=== PATIENT | female | born 1980 | race Caucasian/White ===

== ENCOUNTER 2016-11-27 11:36 | Day surgery (SDC) | payer MEDICAID ==
[~2016-11-27 11:36] MED LIST: Lactated Ringers 1,000 ML IV SCH; Sodium Chloride 0.9% 10 ML Syringe FLUSH PRN; Sodium Chloride 0.9% 2.5 ML Syringe FLUSH PRN; fentaNYL 100 MCG/2 ML SDV IVPUSH PRN
--- NOTE | 2016-11-27 12:15 | PCM.PREANE ---
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: Psychiatric History: Reports: Anxiety, Depression Endocrine/Metabolic History: Reports: Hypothyroidism - Past Surgical History Head Surgeries/Procedures: Reports: None HEENT Surgical History: Reports: Tonsillectomy Female Surgical History: Reports: Tubal ligation Musculoskeletal Surgical History: Reports: Other (see below) Other Musculoskeletal Surgeries/Procedures:: scar tissue removed from rt arm due to previous dog bite - SUBSTANCE USE Smoking Status *Q: Current Every Day Smoker (1/2 ppd) Tobacco Use Within Last Twelve Months: Cigarettes Recreational Drug Use History: No - HOME MEDS Home Medications: Home Meds Ibuprofen 1 tab PO ASDIRECTED PRN 11/02/16 [History] Levothyroxine Sodium [Synthroid] 137 mcg PO DAILY 11/02/16 [History] - CURRENT (IN HOUSE) MEDS Current Meds: Current Medications Fentanyl (Sublimaze) 50 mcg IVPUSH Q5M PRN PRN Reason: Pain (severe 7-10) Stop: 11/28/16 10:12 Lactated Ringer's (Ringers, Lactated) 1,000 mls @ 100 mls/hr IV ASDIRECTED LON Last Admin: 11/27/16 12:09 Dose: 100 mls/hr Sodium Chloride (Saline Flush) 10 ml FLUSH ASDIRECTED PRN PRN Reason: Keep Vein Open Sodium Chloride (Saline Flush) 2.5 ml FLUSH ASDIRECTED PRN PRN Reason: Keep Vein Open Discontinued Medications Lactated Ringer's (Ringers, Lactated) 1,000 mls @ 100 mls/hr IV ASDIRECTED LON Sodium Chloride (Saline Flush) 10 ml FLUSH ASDIRECTED PRN PRN Reason: Keep Vein Open Sodium Chloride (Saline Flush) 2.5 ml FLUSH ASDIRECTED PRN PRN Reason: Keep Vein Open Preanesthetic Assessment - ANESTHESIA/TRANSFUSION/FAMILY HX Anesthesia/Transfusion History: Prior Anesthesia Type of Anesthesia Reaction: Denies: Allergy, Anesthesia Awareness, Excessive Somnolence, Excessive Nausea/Vomiting, Excessive Itching, Excessive Shivering, Malignant Hyperthermia, Malignant Hyperthermia, Family History, Pseudocholinesterase Deficiency, Pseudocholinesterase Deficiency, Family History of, Urinary Retention, Unknown, Other (see below) Family History of Anesthesia Reaction: No Other Intubation History Comment: no known problems - REVIEW OF SYSTEMS Constitutional: Reports: no symptoms 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 Respiratory: Reports: no symptoms Cardiovascular: Reports: no symptoms GI: Reports: no symptoms Other: Reports: None - PHYSICAL ASSESSMENT Height: 1.68 m Weight: 83.461 kg ASA Class: 2 Mental Status: Alert & Oriented x3 Airway Class: Mallampati = 2 Dentition: Reports: Normal Dentition Thyro-Mental Finger Breadths: 3 Mouth Opening Finger Breadths: 3 ROM/Head Extension: Full Respiratory Status: lungs clear to auscultation bilaterally Cardiovascular Status: regular rate & rhythm, normal S1, S2, no murmur, blood pressure WNL - ALLERGIES Allergies/Adverse Reactions: Allergies Allergy/AdvReac Type Severity Reaction Status Date / Time Penicillins Allergy Rash Verified 11/02/16 13:08 - BLOOD Blood Available: No - ANESTHESIA PLAN Preop Beta [place]: No Anesthesia Type Planned: General Anesthesia - ACKNOWLEDGEMENTS Pt an Appropriate Candidate for the Planned Anesthesia: Yes Alternatives and Risks of Anesthesia Discussed w Pt/Guardian: Yes Pt/Guardian Understands and Agrees with Anesthesia Plan: Yes
[2016-11-27] MEDS ORDERED: fentaNYL 250 MCG/5 ML SDV ONE (12:22)
[2016-11-27] MEDS ORDERED: Lidocaine 2% 5 ML SDV ONE ×2 (12:22→12:45)
[2016-11-27] MEDS ORDERED: Propofol 200 MG/20 ML SDV ONE ×2 (12:22→12:45)
[2016-11-27] MEDS ORDERED: Midazolam 1 MG/ML 2 ML SDV ONE (12:22)
[2016-11-27] MEDS ORDERED: Ondansetron 4 MG/2 ML SDV ONE (12:22)
[2016-11-27] MEDS ORDERED: fentaNYL 100 MCG/2 ML SDV IVPUSH PRN (13:28)
[2016-11-27] MEDS ORDERED: HYDROmorphone 2 MG/ML Syringe IVPUSH ONE (13:28)
[2016-11-27] MEDS ORDERED: ePHEDrine 50 MG/ML SDV ONE (13:37)
[2016-11-27] MEDS ORDERED: Ketorolac 30 MG/ML SDV ONE (13:40)
--- NOTE | 2016-11-27 14:05 | PCM.OPNOTE ---
- General Post-Op/Procedure Note Date of Surgery/Procedure: 11/27/16 Operative Procedure(s): Operative hysteroscopy with polypectomy. Thermal endometrial ablation (peggy) Pre Op Diagnosis: Menometrorrhagia Post-Op Diagnosis: Same Anesthesia Technique: General LMA Primary Surgeon: Cyndy Frey Pathology: Endometrial polyp, curretings of endometrium Fluid Replacement, Intraop: 500 EBL in mLs: 10 Complications: None known Condition: Good Free Text/Narrative:: Dictation [id number]
[2016-11-27 15:59] VITALS: BP 102/57
[2016-11-27] MEDS ORDERED: Acetaminophen 325 MG Tab PO ONE (16:07)
--- NOTE | 2016-11-27 16:40 | OR ---
SURGEON: Cyndy Frey M.D. DATE OF PROCEDURE: 11/27/2016 PREOPERATIVE DIAGNOSIS: Menometrorrhagia. POSTOP DIAGNOSIS: Menometrorrhagia. PROCEDURE: 1. Operative hysteroscopy and polypectomy. 2. Thermal endometrial ablation with Ashley. ESTIMATED BLOOD LOSS: 10 mL. ANESTHESIA: General LMA. FLUIDS: 500 mL crystalloid, fluid deficit 150 mL normal saline. COMPLICATION: None known. FINDINGS: Approximately 10 cm uterine cavity. There is an anterior mid low uterine polyp noted, otherwise normal-appearing endometrial cavity. DISPOSITION: The patient to PACU, stable. INDICATIONS: Arlette is a 36-year-old female, who has had ongoing difficulty with menometrorrhagia. Endometrial biopsy was benign. Sonohysterogram revealed a polypoid lesion. Therefore, she has opted to proceed with surgical intervention in the form of polypectomy. In addition, she has had a previous tubal ligation with benign endometrial biopsy. Therefore, would also like to proceed with the endometrial ablation at the same time. Risks of the procedure have been discussed. Proper consent was obtained. DESCRIPTION OF PROCEDURE: The patient was taken to the operating room, where she underwent general LMA, was placed in modified dorsal lithotomy position and was prepped and draped in usual sterile fashion. Time-out was performed. Bladder had been drained. A speculum was introduced in the vagina. Anterior lip of the cervix was grasped with an Allis clamp. Hysteroscope was gently introduced in the uterine cavity. Fundus was able to be visualized. The right ostia and left ostia were able to be visualized. The fundus appeared smooth. Along the lower uterine segment anteriorly, there was a polypoid lesion noted and no endocervical lesions noted. MyoSure was now introduced. Polypectomy was performed and then also performed shavings and curettings of the endometrium until the cavity was smooth and flush in preparation for the ablation. Photographs were taken. MyoSure was now removed. Ashley probe was now prepped according to supervisor vacuum metalizing protocol. The uterus was sounded to 10 cm. The cervical length appeared to be approximately 4 cm. The cervix was dilated to 8 mm. The probe was now introduced to the level of the fundus. The arms were gently opened, it was noted that a green zone was present on the probe markings. Therefore, the balloon was insufflated and the ablated process was initiated. The 120-second ablated process was completed. The balloon was deflated. The arms were closed and removed and the probe was removed from the endometrial cavity. The patient had tolerated this portion of the procedure well. The cervix was inspected and found to be hemostatic. All instruments removed from the vagina. Sponge and instrument count was correct x2. The patient tolerated the procedure well. She will go to PACU in stable condition. Specimens to pathology. SVETLANA / ALMA /[id number]
== END 2016-11-27 16:20 | disposition home or self-care (01) ==
LOC: MW.SDS 11:36
PROVIDERS: ATTEND Obstetrics & Gynecology
PROC: 0U5B8ZZ Destruction of Endometrium, Via Natural or Artificial Opening Endoscopic (ICD-10-PCS; principal; 2016-11-27)
DX: N84.0 Polyp of corpus uteri (principal); E03.9 Hypothyroidism, unspecified; Z79.899 Other long term (current) drug therapy
CPT/HCPCS: 36415; 58353; 84703; 85027; 88305; A9270; J1885; J2250; J2405; J3010; J7120; 00952; J2704